=== PATIENT | female | born 1960 | race Hispanic/Latino ===

== ENCOUNTER → 2021-12-08 | Day surgery (SDC) | payer OTHER ==
[~2021-12-08] MED LIST: ATENOLOL50 MG PO; EPHEDRINE SULFATE INJ 50 MG/ML VIAL ONE; FENTANYL CITRATE/PF 100MCG/2 ML INJ ONE; JANUVIA100 MG PO; LEVEMIR FL100 UNIT/1 SC; LEVOTHYROXINE125 MC1 PO; LIDOCAINE HCL 2% LOCAL INJ 5 ML SDV VIAL INJ ONE; LIPITOR10 MG PO; METFORMIN HCL500 M2 PO; PROPOFOL IV EMULSION 10 MG/ML 20 ML VIAL ONE; TRULICITY0.75 MG/0. INJ; ZESTRIL10 MG PO
[2021-12-08 15:45] VITALS: BP 103/66
== END | disposition home or self-care (01) ==
LOC: OR 10:49
PROVIDERS: ATTEND Internal Medicine Gastroenterology
DX: K29.40 Chronic atrophic gastritis without bleeding (principal); D12.0 Benign neoplasm of cecum; D12.4 Benign neoplasm of descending colon; B96.81 Helicobacter pylori [H. pylori] as the cause of diseases classified elsewhere; K20.90 Esophagitis, unspecified without bleeding; K63.89 Other specified diseases of intestine; K31.89 Other diseases of stomach and duodenum; K22.89 Other specified disease of esophagus; K59.09 Other constipation; K44.9 Diaphragmatic hernia without obstruction or gangrene; K57.30 Diverticulosis of large intestine without perforation or abscess without bleeding; K64.8 Other hemorrhoids; Z71.3 Dietary counseling and surveillance; E11.9 Type 2 diabetes mellitus without complications; E78.00 Pure hypercholesterolemia, unspecified; E03.9 Hypothyroidism, unspecified; F41.9 Anxiety disorder, unspecified; Z01.810 Encounter for preprocedural cardiovascular examination; Z01.812 Encounter for preprocedural laboratory examination; Z79.4 Long term (current) use of insulin; Z79.899 Other long term (current) drug therapy; Z68.37 Body mass index [BMI] 37.0-37.9, adult; Z85.850 Personal history of malignant neoplasm of thyroid; Z86.16 Personal history of COVID-19; Z80.0 Family history of malignant neoplasm of digestive organs
CPT/HCPCS: 36415; 43239; 45385; 82948; 93005; J2001; J3010; U0002

== ENCOUNTER 2021-12-31 15:20 | Inpatient (IN) | payer OTHER ==
[~2021-12-31] VITALS: Ht 160 cm; Wt 88.5 kg
[~2021-12-31 15:20] MED LIST changes: -EPHEDRINE SULFATE INJ 50 MG/ML VIAL ONE; -FENTANYL CITRATE/PF 100MCG/2 ML INJ ONE; -LIDOCAINE HCL 2% LOCAL INJ 5 ML SDV VIAL INJ ONE; -PROPOFOL IV EMULSION 10 MG/ML 20 ML VIAL ONE
[2021-12-31] MEDS ORDERED: ASPIRIN 325 MG TAB PO ONE (15:45)
[2021-12-31 15:46] LABS: BASOPHILS # (AUTO) 0.1 (0.0-0.1); BASOPHILS % 0.8 % (0.0-1.0); EOSINOPHILS # (AUTO) 0.4 (0.0-0.4); EOSINOPHILS % 4.9 % (0.0-6.0); HEMATOCRIT 43.4 % (34.2-44.1); HEMOGLOBIN 14.7 g/dL (12.0-16.0); LYMPHOCYTES # (AUTO) 2.6 (1.0-3.2); LYMPHOCYTES % 32.4 % (18.0-39.1); MEAN CORPUSCULAR HEMOGLOBIN 29.1 pg (28-32); MEAN CORPUSCULAR HGB CONC 33.9 g/dL (31-35); MEAN CORPUSCULAR VOLUME 85.8 fL (81-99); MONOCYTES # (AUTO) 0.6 (0.2-0.8); NEUTROPHILS # (AUTO) 4.4 (2.1-6.9); NEUTROPHILS % 54.8 % (38.7-80.0); PLATELET COUNT 278 x10e3/uL (140-360); RED BLOOD COUNT 5.06 x10e6/uL (3.6-5.1); RED CELL DISTRIBUTION WIDTH 12.3 % (11.7-14.4)
[2021-12-31 15:55] LABS: INR 0.93; PROTHROMBIN TIME 13.3 seconds (11.9-14.5)
[2021-12-31 16:02] LABS: ANION GAP 13.9 mmol/L (8-16); CALCIUM 9.9 mg/dL (8.4-10.2); CREATININE, SERUM 1.31 mg/dL (0.57-1.11); POTASSIUM 3.9 mmol/L (3.5-5.1)
[2021-12-31 16:08] LABS: CREATINE KINASE MB 0.9 ng/mL (0-5.0)
[2021-12-31] MEDS ORDERED: ONDANSETRON HCL INJ 2MG/ML 2ML 2 MG/ML VIAL IV PRN (17:15)
[2021-12-31] MEDS ORDERED: NITROGLYCERIN 2% OINT 1 GM PKT TOP ONE (17:15)
[2021-12-31] MEDS ORDERED: SODIUM CHLORIDE FLUSH 10 ML SYR INJ PRN (17:15)
[2021-12-31] MEDS ORDERED: Morphine 4mg Syringe 4 MG/ML INJ IV PRN (17:15)
[2021-12-31] MEDS ORDERED: NITROGLYCERIN 0.2 MG/HR PATCH TOP STA (17:24)
[2021-12-31] MEDS ORDERED: ACETAMINOPHEN 325 MG TAB PO PRN (18:00)
[2021-12-31] MEDS ORDERED: POLYETHYLENE GLYCOL 3350 17 GM PACK PO PRN (18:45)
[2021-12-31] MEDS ORDERED: HYDRALAZINE HCL 20 MG/ML VIAL IV PRN (18:45)
[2021-12-31] MEDS ORDERED: PROBIOTIC & AC1 EACH PO (20:07)
[2021-12-31] MEDS ORDERED: TALICIA PO (20:07)
[2021-12-31] MEDS ORDERED: CRESTOR10 MG PO (20:07)
[2021-12-31] MEDS ORDERED: PANTOPRAZOLE SO40 MG PO (20:07)
[2021-12-31 20:21] VITALS: BP 135/98
[2021-12-31 20:30] VITALS: BP 135/98
[2021-12-31] MEDS: SIMVASTATIN 40 MG TAB PO SCH (22:20)
[2021-12-31] MEDS ORDERED: SODIUM CHLORIDE 0.9% 1000ML 1,000 ML IV SCH (23:00)
[2022-01-01] VITALS (8 sets, daily range): BP systolic 124–157; BP diastolic 85–93
[2022-01-01 05:42] LABS: BASOPHILS % 0.6 % (0.0-1.0); EOSINOPHILS # (AUTO) 0.4 (0.0-0.4); EOSINOPHILS % 6.2 % (0.0-6.0); HEMATOCRIT 39.8 % (34.2-44.1); HEMOGLOBIN 13.4 g/dL (12.0-16.0); LYMPHOCYTES # (AUTO) 2.4 (1.0-3.2); LYMPHOCYTES % 38.4 % (18.0-39.1); MEAN CORPUSCULAR HEMOGLOBIN 28.9 pg (28-32); MEAN CORPUSCULAR HGB CONC 33.7 g/dL (31-35); MONOCYTES # (AUTO) 0.7 (0.2-0.8); MONOCYTES % 10.3 % (4.4-11.3); NEUTROPHILS # (AUTO) 2.8 (2.1-6.9); NEUTROPHILS % 44.3 % (38.7-80.0); PLATELET COUNT 244 x10e3/uL (140-360); RED BLOOD COUNT 4.63 x10e6/uL (3.6-5.1); RED CELL DISTRIBUTION WIDTH 12.2 % (11.7-14.4)
[2022-01-01 06:10] LABS: ANION GAP 11.7 mmol/L (8-16); CHOL/HDL RATIO 3.6 (3.0-3.6); CREATININE, SERUM 1.04 mg/dL (0.57-1.11); MAGNESIUM 1.9 MG/DL (1.3-2.1); PHOSPHORUS 3.6 MG/DL (2.3-4.7); POTASSIUM 3.7 mmol/L (3.5-5.1)
[2022-01-01 06:21] LABS: CREATINE KINASE MB 0.6 ng/mL (0-5.0)
[2022-01-01 06:33] LABS: THYROID STIMULATING HORMONE 10.258 uIU/mL (0.350-4.940)
[2022-01-01] MEDS: LEVOTHYROXINE SODIUM 125 MCG TAB PO SCH (06:40)
[2022-01-01] MEDS: FAMOTIDINE 20 MG TAB PO SCH ×2 (06:40→17:20)
[2022-01-01] MEDS: ASPIRIN 81 MG ENTERIC COATED PO SCH (08:51)
[2022-01-01] MEDS: LACTOBACILLUS ACIDOPHILUS CAPSULE PO SCH ×2 (08:51→17:20)
[2022-01-01] MEDS: SITAGLIPTIN 100 MG TAB PO SCH (08:51)
[2022-01-01] MEDS: PANTOPRAZOLE SOD 40 MG TABEC PO SCH (08:51)
[2022-01-01] MEDS: ATENOLOL 50 MG TAB PO SCH (08:52)
[2022-01-01] MEDS: INSULIN GLARGINE 100 UNITS/ML VIAL SQ SCH ×3 (08:52→18:00)
[2022-01-01] MEDS ORDERED: CLOPIDOGREL BISULFATE 75 MG TAB PO ONE (11:30)
[2022-01-01 14:25] LABS: CREATINE KINASE MB 0.7 ng/mL (0-5.0)
[2022-01-01] MEDS: SIMVASTATIN 40 MG TAB PO SCH (21:30)
[2022-01-02] VITALS: BP 136/73
[2022-01-02 04:00] VITALS: BP 142/90
[2022-01-02] MEDS ORDERED: SODIUM CHLORIDE 0.9% 1000ML 1,000 ML IV SCH ×2 (05:00→13:00)
[2022-01-02 05:27] LABS: BASOPHILS % 0.4 % (0.0-1.0); EOSINOPHILS # (AUTO) 0.5 (0.0-0.4); EOSINOPHILS % 6.1 % (0.0-6.0); HEMATOCRIT 39.9 % (34.2-44.1); HEMOGLOBIN 13.6 g/dL (12.0-16.0); LYMPHOCYTES # (AUTO) 2.5 (1.0-3.2); LYMPHOCYTES % 30.5 % (18.0-39.1); MEAN CORPUSCULAR HEMOGLOBIN 29.1 pg (28-32); MEAN CORPUSCULAR HGB CONC 34.1 g/dL (31-35); MEAN CORPUSCULAR VOLUME 85.3 fL (81-99); MONOCYTES # (AUTO) 0.7 (0.2-0.8); MONOCYTES % 9.1 % (4.4-11.3); NEUTROPHILS # (AUTO) 4.3 (2.1-6.9); NEUTROPHILS % 53.7 % (38.7-80.0); PLATELET COUNT 262 x10e3/uL (140-360); RED BLOOD COUNT 4.68 x10e6/uL (3.6-5.1); RED CELL DISTRIBUTION WIDTH 12.2 % (11.7-14.4)
[2022-01-02 06:01] LABS: ALBUMIN 3.6 g/dL (3.5-5.0); ALBUMIN/GLOBULIN RATIO 1.1 (0.8-2.0); ANION GAP 11.9 mmol/L (8-16); CALCIUM 9.4 mg/dL (8.4-10.2); CREATININE, SERUM 1.34 mg/dL (0.57-1.11); POTASSIUM 3.9 mmol/L (3.5-5.1)
[2022-01-02] MEDS: FAMOTIDINE 20 MG TAB PO SCH ×2 (07:24→16:30)
[2022-01-02] MEDS: LEVOTHYROXINE SODIUM 125 MCG TAB PO SCH (07:24)
[2022-01-02] MEDS: SITAGLIPTIN 100 MG TAB PO SCH (07:25)
[2022-01-02] MEDS: PANTOPRAZOLE SOD 40 MG TABEC PO SCH (07:25)
[2022-01-02] MEDS: ATENOLOL 50 MG TAB PO SCH (07:25)
[2022-01-02] MEDS: ASPIRIN 81 MG ENTERIC COATED PO SCH (07:25)
[2022-01-02] MEDS: LACTOBACILLUS ACIDOPHILUS CAPSULE PO SCH ×2 (07:25→17:00)
[2022-01-02] MEDS: INSULIN GLARGINE 100 UNITS/ML VIAL SQ SCH ×2 (07:26→13:00)
[2022-01-02 07:51] VITALS: BP 134/109
[2022-01-02 09:00] VITALS: BP 134/109
[2022-01-02] MEDS ORDERED: (Dulaglutide (Trulicity) 0.75 MG) SC SCH (09:00)
[2022-01-02] MEDS ORDERED: CLOPIDOGREL BISULFATE 75 MG TAB PO SCH (09:00)
[2022-01-02] MEDS ORDERED: HEPARIN SOD (PORCINE) 1000 UNIT/ML 30ML ONE (10:07)
[2022-01-02] MEDS ORDERED: LIDOCAINE HCL 2% LOCAL 20 ML VIAL ONE (10:07)
[2022-01-02] MEDS ORDERED: IOPAMIDOL 370 MG/ML 200 ML INFUS..BTL INJ ONE (10:08)
[2022-01-02] MEDS ORDERED: HEPARIN SOD/SOD CHLORIDE 2,000 ML ONE (10:08)
[2022-01-02] MEDS ORDERED: SODIUM CHLORIDE 0.9% 1000ML 0 ML ONE (10:08)
[2022-01-02] MEDS ORDERED: NITROGLYCERIN/D5W 200 MCG/ML 250 ML ONE (10:08)
[2022-01-02] MEDS ORDERED: MIDAZOLAM HCL 2 MG/2 ML VIAL ONE (10:09)
[2022-01-02] MEDS ORDERED: FENTANYL CITRATE/PF 100MCG/2 ML INJ ONE (10:09)
[2022-01-02] MEDS ORDERED: SODIUM CHLORIDE 0.9% 500ML 500 ML ONE (10:12)
[2022-01-02 11:13] VITALS: BP 147/106
[2022-01-02] MEDS ORDERED: VERAPAMIL HCL 2.5 MG/ML 2 ML VIAL ONE (12:04)
[2022-01-02] MEDS ORDERED: ONDANSETRON HCL INJ 2MG/ML 2ML 2 MG/ML VIAL IV PRN (12:30)
[2022-01-02] MEDS ORDERED: HYDROCODONE/APAP 5MG-325MG TAB PO PRN (12:30)
[2022-01-02] MEDS ORDERED: ACETAMINOPHEN 325 MG TAB PO PRN (12:30)
[2022-01-02 15:32] VITALS: BP 158/90
== END 2022-01-02 17:38 | disposition home or self-care (01) | DRG 287 ==
LOC: ER 15:28 → ERHOLD 17:06 → MED/SURG 19:29
PROVIDERS: ADMIT Internal Medicine; ATTEND Internal Medicine
PROC: 4A023N7 Measurement of Cardiac Sampling and Pressure, Left Heart, Percutaneous Approach (ICD-10-PCS; principal; 2022-01-02)
PROC: B2111ZZ Fluoroscopy of Multiple Coronary Arteries using Low Osmolar Contrast (ICD-10-PCS; 2022-01-02)
PROC: B2151ZZ Fluoroscopy of Left Heart using Low Osmolar Contrast (ICD-10-PCS; 2022-01-02)
DX: I20.9 Angina pectoris, unspecified (principal); I13.0 Hypertensive heart and chronic kidney disease with heart failure and stage 1 through stage 4 chronic kidney disease, or unspecified chronic kidney disease; I50.32 Chronic diastolic (congestive) heart failure; E78.5 Hyperlipidemia, unspecified; E11.65 Type 2 diabetes mellitus with hyperglycemia; E11.22 Type 2 diabetes mellitus with diabetic chronic kidney disease; N18.32 Chronic kidney disease, stage 3b; E86.0 Dehydration; E11.69 Type 2 diabetes mellitus with other specified complication; E03.9 Hypothyroidism, unspecified; E66.9 Obesity, unspecified; Z68.34 Body mass index [BMI] 34.0-34.9, adult; Z85.850 Personal history of malignant neoplasm of thyroid; Z83.3 Family history of diabetes mellitus; Z20.822 Contact with and (suspected) exposure to COVID-19; R63.4 Abnormal weight loss; Z79.84 Long term (current) use of oral hypoglycemic drugs
CPT/HCPCS: 36415; 71045; 76770; 76937; 80048; 80053; 80061; 82550; 82553; 82948; 83036; 83735; 83880; 84100; 84165; 84443; 84484; 85025; 85379; 85610; 93005; 93306; 93458; 94799; 99152; 99284; C1887; J1644; J1815; J2001; J2250; J3010; J7030; J7040; Q9967; U0002

== ENCOUNTER → 2022-02-27 | Outpatient (CLI) | payer OTHER ==
[~2022-02-27] MED LIST changes: +CRESTOR10 MG PO; +PANTOPRAZOLE SO40 MG PO; +PROBIOTIC & AC1 EACH PO; +TALICIA PO
== END ==
LOC: RAD 08:29
PROVIDERS: ATTEND Internal Medicine Gastroenterology
DX: K59.09 Other constipation (principal)
CPT/HCPCS: 74018